=== PATIENT | male | born 1960 | race Asian ===

== ENCOUNTER 2022-01-27 11:54 | Emergency (ER) | payer OTHER, MEDICAID ==
[~2022-01-27] VITALS: Ht 167.6 cm; Wt 86.2 kg
[2022-01-27 12:02] VITALS: BP_SYST 198
--- NOTE | 2022-01-27 12:07 | NUR ---
Patient to ER bed 02 to gown for evaluation. Side rails up.
--- NOTE | 2022-01-27 12:32 | NUR ---
DR SERRANO AT BEDSIDE FOR EVALUATION
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
[2022-01-27] MEDS ORDERED: NAPR-688 PO (12:51)
[2022-01-27] MEDS ORDERED: SOM350 PO (12:51)
--- NOTE | 2022-01-27 13:00 | NUR ---
Patient given written and verbal discharge instructions and verbalizes understanding VIA [employer], SPOKE WITH JAIME #[id number] ANDRES GARCÍA discussed with patient the results and treatment provided. Patient in stable condition. ID arm band removed Rx of naproxen, soma given. Patient educated on pain management and to follow up with PMD. Pain Scale 0/10. Opportunity for questions provided and answered. Medication side effect fact sheet provided.
== END 2022-01-27 13:00 | disposition home or self-care (01) ==
LOC: SED 11:54
DX: S39.012A Strain of muscle, fascia and tendon of lower back, initial encounter (principal); Z79.899 Other long term (current) drug therapy; V89.2XXA Person injured in unspecified motor-vehicle accident, traffic, initial encounter; Y93.89 Activity, other specified; Y92.89 Other specified places as the place of occurrence of the external cause; Y99.8 Other external cause status
CPT/HCPCS: 99283